=== PATIENT | female | born 1965 | race American Indian/Alaskan Native ===

== ENCOUNTER 2017-02-18 13:13 | Outpatient (CLI) | payer OTHER ==
--- NOTE | 2017-02-18 15:10 | Mammography Report ---
BONE DEXA:02/18/17 13:13:00 CLINICAL: Postmenopausal. No comparison. TECHNIQUE: Two site bone DEXA performed on an Hologic scanner. FINDINGS: The average BMD of the lumbar spine L1-L4 is 0.894g/cm squared with a T-score of -2.3 and a Z-score of -1.3. The average BMD of the right hip is 1.125g/cm squared with a T-score of +0.6 and a Z-score of + 1.0. IMPRESSION: 1. WHO classification: Osteopenia with increased fracture risk based on lumbar spine measurements. 2. WHO classification: Normal with average fracture risk based on right hip measurements. RECOMMENDATION: Clinical correlation and routine screening. DEFINITIONS: BMD = Bone Mineral Density T-score = BMD related to mean peak bone mass of young adult (mean expressed in Standard Deviation) Z-score = Age matched BMD expressed in SD World Health Organization (WHO) Diagnostic Criteria Normal T-score > -1 SD Osteopenia T-score between -1 and -2.4 SD Osteoporosis T-score -2.5 SD or below NOTE: BMD is not the only risk factor for fracture. One should also consider factors such as the patient's age, risk of falling, previous osteoporotic fracture, family history of osteoporotic fractures, current smoker, and low body weight. Z-scores are not calculated if >80 years of age.
== END 2017-02-18 13:14 | disposition home or self-care (01) ==
LOC: SPVWC 13:13
PROVIDERS: ATTEND Family Medicine
DX: M85.88 Other specified disorders of bone density and structure, other site (principal); M25.561 Pain in right knee; M25.562 Pain in left knee; Z78.0 Asymptomatic menopausal state
CPT/HCPCS: 77080

== ENCOUNTER 2017-02-20 15:13 | Outpatient (CLI) | payer OTHER ==
--- NOTE | 2017-02-21 09:06 | XRay Report ---
BILATERAL KNEE THREE VIEWS EACH: 02/20/17 15:13:00 CLINICAL: Bilateral knee pain. FINDINGS: Right: Mild osteopenia. Mild medial joint space narrowing with a small medial osteophyte. A small inferior patellofemoral osteophyte. No fracture or dislocation. No joint effusion. Normal soft tissues. Left: Mild osteopenia. Mild medial joint space narrowing with a small medial osteophyte. A small inferior patellofemoral osteophyte. No joint effusion. No fracture or dislocation. Normal soft tissues. 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
== END 2017-02-20 15:14 | disposition home or self-care (01) ==
LOC: SPVIMAG 15:13
PROVIDERS: ATTEND Nurse Practitioner Family
DX: Z13.820 Encounter for screening for osteoporosis (principal); M17.0 Bilateral primary osteoarthritis of knee; M85.88 Other specified disorders of bone density and structure, other site; M25.761 Osteophyte, right knee; M25.762 Osteophyte, left knee